=== PATIENT | male | born 1955 | race Caucasian/White ===

== ENCOUNTER 2016-10-14 21:50 | Emergency (ER) | payer OTHER ==
--- NOTE | ~2016-10-14 | CR126 ---
[facility] A Service of [facility] RADIOLOGY TEXT RESULTS PATIENT: RUTH BARON LOCATION: SED : 59 UNIT #: [id number] AGE: [address]: Yoshi Woo MD SEX: M ORDER DR: [id number] [place] [id number] MR#: [id number] Acc #: [id number] NAME: RUTH BARON : 1955 SEX: M STUDY DATE/TIME: 10/14/2016 22:18 UNIT: SED ROOM: STUDY DESCRIPTION: CR Foot Complete Min 3 View Lt Attending Physician: Yoshi Woo M.D. Ordering Physician: Yoshi Woo M.D. Primary Care Physician: Serge Baig M.D. MEDICAL IMAGING REPORT This report is preliminary unless electronic signature is present. EXAM Left foot 3 views 10/14/2016 HISTORY Left foot pain and swelling and bruising first and second toes. Dropped a rotor on left foot yesterday. FINDINGS 3 views of the left foot demonstrate no fracture. The bones are normally mineralized. There is a 3 mm metallic foreign body overlying the mid portion of the fourth middle phalanx. IMPRESSION 1. No evidence of fracture. 2. 3 mm metallic foreign body overlying the mid portion of the fourth middle phalanx. Dictated by... Jose Roberto Lu M.D. THIS IS AN ELECTRONICALLY VERIFIED REPORT Jose Roberto Lu M.D. at 10/15/2016 2:14 PM MAGGY/kye TD: 10/15/2016 09:20 JOB #: [id number] MEDICAL IMAGING REPORT Page 1 of 1
[~2016-10-14 21:50] MED LIST: ALBUTEROL17 GM INH; B 12; B-121000 MC1; BENTYL20 MG PO; BENZONATATE PO; HCTZ; HYDROCODON-ACE1 EAC9; LEVOTHYROXINE; LINZESS145 MCG; MELOXICAM15 MG; NAPROXEN PO; NAPROXEN375 MG; NORCO1 TAB 10/3 PO; QUETIAPINE; SALAGEN5 MG; WELLBUTRIN; WELLBUTRIN100 M1; ZITHROMAX PO; ZOFRANODT PO
[2016-10-14] MEDS ORDERED: AMBIEN (22:06)
[2016-10-14] MEDS ORDERED: SEROQUEL (22:06)
[2016-10-14] MEDS ORDERED: NEURONTIN (22:09)
== END 2016-10-14 23:18 | disposition home or self-care (01) ==
LOC: SED 21:50
DX: S90.32XA Contusion of left foot, initial encounter (principal); F41.9 Anxiety disorder, unspecified; E07.9 Disorder of thyroid, unspecified; Z86.19 Personal history of other infectious and parasitic diseases; W22.8XXA Striking against or struck by other objects, initial encounter; Y92.009 Unspecified place in unspecified non-institutional (private) residence as the place of occurrence of the external cause
CPT/HCPCS: 73630; 96372; 99283; J1885